=== PATIENT | male | born 1970 | race Caucasian/White ===

== ENCOUNTER → 2017-02-24 08:47 | Outpatient (CLI) | payer BC ==
[~2017-02-24 08:47] MED LIST: AUGMENTIN 875-11 TAB PO; HYDROCODON-ACE1 EAC7 PO; TESTOSTERON200 MG/ML
[2017-02-24 09:08] LABS: BASOPHILS 0.3 % (0-2); EOSINOPHILS 1.1 % (0-7); HEMATOCRIT 52.5 % (42.0-54.0); HEMOGLOBIN 17.8 g/dL (13.5-17.5); IMMATURE GRANULOCYTES 0.3 % (0-5); LYMPHOCYTES 32.3 % (15-50); MCH 30.6 pg (26.0-34.0); MCHC 33.9 g/dL (31.0-37.0); MCV 90.2 fL (80.0-100.0); MEAN PLATELET VOLUME 10.4 fL (7.4-10.4); MONOCYTES 10.6 % (2-11); NEUTROPHILS 55.4 % (40-80); PLATELET COUNT 174 10x3/uL (130-400); RBC 5.82 10x6/uL (4.20-6.10); RDW 13.8 % (11.5-14.5); WBC 6.5 10x3/uL (4.8-10.8)
[2017-02-24 09:39] LABS: ALBUMIN 3.7 g/dL (3.4-5.0); BILIRUBIN - TOTAL 0.41 mg/dL (0.2-1.3); CALCIUM 9.1 mg/dL (8.5-10.1); CARBON DIOXIDE 29.2 mmol/L (21.0-32.0); CHOL - HDL RATIO 4.1 ratio (2.3-4.9); CREATININE - SERUM 1.2 mg/dL (0.6-1.3); LDL-HDL RATIO 2.7 ratio (1.5-3.5); POTASSIUM - SERUM 4.2 mmol/L (3.5-5.1); PROTEIN - SERUM 7.2 g/dL (6.4-8.2); THYROID STIMULATING HORMONE 1.55 uIU/mL (0.36-3.74)
== END | disposition home or self-care (01) ==
LOC: D.LAB 08:47
PROVIDERS: Family Medicine
DX: Z00.00 Encounter for general adult medical examination without abnormal findings (principal); Z12.5 Encounter for screening for malignant neoplasm of prostate; R53.83 Other fatigue; I10 Essential (primary) hypertension; E66.9 Obesity, unspecified; E23.6 Other disorders of pituitary gland; E25.9 Adrenogenital disorder, unspecified

== ENCOUNTER → 2017-08-25 11:12 | Outpatient (CLI) | payer BC ==
[~2017-08-25 11:12] MED LIST changes: +HYDROCODONE-APA1 TAB PO; +HYZAAR 100-25 T1 TAB PO
== END | disposition home or self-care (01) ==
LOC: D.RAD 11:12
DX: M25.561 Pain in right knee (principal)

== ENCOUNTER → 2017-09-13 19:08 | Outpatient (CLI) | payer BC | END | disposition home or self-care (01) | LOC: D.SLEEP 19:08 | DX: G47.30 Sleep apnea, unspecified (principal); G47.00 Insomnia, unspecified ==

== ENCOUNTER 2017-10-19 07:04 | Day surgery (SDC) | payer BC ==
[~2017-10-19] VITALS: Ht 175.3 cm; Wt 117.9 kg
--- NOTE | ~2017-10-19 | OP ---
PATIENT NAME: FILIPPO KHOURY MEDICAL RECORD: [id number] :74 LOCATION:D.OPS ADMISSION DATE: SURGEON: ROSIE SHULTZ MD DATE OF OPERATION: 10/19/2017 PREOPERATIVE DIAGNOSES: 1. Umbilical hernia. 2. Hypertension. POSTOPERATIVE DIAGNOSES: 1. Umbilical hernia. 2. Hypertension. PROCEDURE: Umbilical hernia repair with 4.3 cm Proceed mesh. SURGEON: Rosie Shultz MD REPORT OF PROCEDURE: The patient's abdomen was prepped and draped in sterile fashion. A semicircular incision was made on the inferior aspect of the umbilicus. Electrocautery was used to dissect through the subcutaneous tissues and around the umbilical stalk. The hernia sac, which was attached to the umbilical stalk was transected using electrocautery and an area was freed up on the fascia in all directions. The fascial defect was cleared from the hernia sac and the fascial defect was noted to be approximately 1.5 cm in greatest diameter. Just above this larger hernia defect, there was a smaller defect in the midline with some fat-containing material. We freed up the undersurface of the fascia in all directions and inserted a 4.3 cm Proceed mesh. This was sutured down to the fascia using interrupted 0 Prolenes. We then irrigated out the wounds with normal saline and assured there was no sign of any bleeding. At this point, the fascial defect was closed transversely using running 0 Vicryl and the smaller hernia defect was closed longitudinally using only a single interrupted 0 Vicryl. The umbilicus was then tacked down using an interrupted 3-0 Vicryl. The subcutaneous tissues were reapproximated with interrupted 3-0 Vicryls and the skin was closed with running subcutaneous 5-0 Monocryl. A total of 10 mL of 0.25% Marcaine plain were infused into the surrounding tissues and the wounds were dressed appropriately. COMPLICATIONS: None. CONDITION: Stable. ANESTHESIA: General endotracheal and local. BLOOD LOSS: Minimal. TRANSINT:[id number] Voice Confirmation ID: [id number] DOCUMENT ID: [id number] OPERATIVE REPORT [id number] FILIPPO KHOURY ROSIE SHULTZ MD at 1137 CC: RADHA HAWTHORNE [id number] DICTATION DATE: 10/19/17 1039 DIRECTOR TRANSLATIONAL: 10/19/17 1049 DEP SDC 10/19/17 [facility] [address] [facility], [facility]
[~2017-10-19 07:04] MED LIST changes: -HYDROCODONE-APA1 TAB PO
[2017-10-19 07:52] LABS: BASOPHILS 0.4 % (0-2); EOSINOPHILS 1.3 % (0-7); HEMATOCRIT 49.6 % (42.0-54.0); HEMOGLOBIN 16.5 g/dL (13.5-17.5); IMMATURE GRANULOCYTES 0.5 % (0-5); LYMPHOCYTES 32.6 % (15-50); MCH 30.7 pg (26.0-34.0); MCHC 33.3 g/dL (31.0-37.0); MCV 92.4 fL (80.0-100.0); MEAN PLATELET VOLUME 10.1 fL (7.4-10.4); MONOCYTES 10.9 % (2-11); NEUTROPHILS 54.3 % (40-80); RBC 5.37 10x6/uL (4.20-6.10); RDW 14.2 % (11.5-14.5); WBC 5.6 10x3/uL (4.8-10.8)
[2017-10-19 08:04] LABS: PLATELET COUNT 214 10x3/uL (130-400)
[2017-10-19 08:06] LABS: ANION GAP 11.3 mmol/L (8-16); CALCIUM 8.3 mg/dL (8.5-10.1); CARBON DIOXIDE 29.7 mmol/L (21.0-32.0); CREATININE - SERUM 1.3 mg/dL (0.6-1.3)
[2017-10-19 08:15] VITALS: BP 142/96; Ht 175.3 cm; Wt 117.9 kg
[2017-10-19] MEDS ORDERED: HYDROCODONE-APA1 TAB PO (10:33)
== END 2017-10-19 13:30 | disposition home or self-care (01) ==
LOC: D.OPS 07:04
PROVIDERS: Surgery
DX: K42.9 Umbilical hernia without obstruction or gangrene (principal); I10 Essential (primary) hypertension; Z01.812 Encounter for preprocedural laboratory examination

== ENCOUNTER → 2018-06-08 08:21 | Outpatient (CLI) | payer BC ==
[2017-10-19 08:15] VITALS: BMI 38.5
[~2018-06-08 08:21] MED LIST changes: +HYDROCODONE-APA1 TAB PO
[2018-06-08 08:48] LABS: BASOPHILS 0 % (0-2); EOSINOPHILS 1.2 % (0-7); HEMATOCRIT 49.6 % (42.0-54.0); HEMOGLOBIN 16.3 g/dL (13.5-17.5); IMMATURE GRANULOCYTES 0.5 % (0-5); LYMPHOCYTES 22.5 % (15-50); MCH 27.5 pg (26.0-34.0); MCHC 32.9 g/dL (31.0-37.0); MCV 83.6 fL (80.0-100.0); MEAN PLATELET VOLUME 10.1 fL (7.4-10.4); MONOCYTES 12.8 % (2-11); RBC 5.93 10x6/uL (4.20-6.10); RDW 15.1 % (11.5-14.5); WBC 7.4 10x3/uL (4.8-10.8)
[2018-06-08 08:49] LABS: PLATELET COUNT 144 10x3/uL (130-400)
[2018-06-08 09:19] LABS: CHOL - HDL RATIO 4.2 ratio (2.3-4.9); LDL-HDL RATIO 2.9 ratio (1.5-3.5); THYROID STIMULATING HORMONE 1.62 uIU/mL (0.36-3.74)
== END | disposition home or self-care (01) ==
LOC: D.LAB 08:21
PROVIDERS: Family Medicine
DX: I10 Essential (primary) hypertension (principal); E66.9 Obesity, unspecified; Z00.00 Encounter for general adult medical examination without abnormal findings